=== PATIENT | male | born 1975 | race Caucasian/White ===

== ENCOUNTER 2020-05-08 18:54 | Inpatient (IN) ==
[2020-05-08] MEDS ORDERED: SODIUM CHLORIDE 0.9% 500 ML IV SCH (19:00)
[2020-05-08] MEDS: HYDROmorphone INJ 1 MG/ML SYRINGE IV PRN ×4 (19:04→21:02)
--- NOTE | 2020-05-08 19:11 | XRay Report ---
XR chest 1V portable CLINICAL HISTORY: trauma COMPARISON STUDY: No previous studies for comparison. FINDINGS: Cardiomediastinal silhouette is unremarkable. Small amount of right chest wall gas is noted . There is a suspected small right apical pneumothorax. Probable acute nondisplaced fractures of the posterior lateral right fifth and sixth ribs are noted. There is no left pneumothorax. No airspace op acities are identified. Pulmonary vascularity is normal. IMPRESSION: 1. Small right apical pneumothorax. Small amount of right chest wall gas. 2. Probable acute nondisplaced fractures of the posterolateral right fifth and sixth ribs. ACT 112: Negative or not required by law. Electronically signed by: Perez Pack M.D. 05/08/2020 7:10 PM
[2020-05-08 19:15] LABS: Basophils # (auto) 0.03 K/uL (0-0.2); Basophils % (auto) 0.2 %; Eosinophils # (auto) 0.16 K/uL (0-0.5); Hemoglobin 14.8 g/dL (14.0-18.0); Immature Granulocytes # (auto) 0.03 K/uL (0.00-0.02); Immature Granulocytes % (auto) 0.2 %; Lymphocytes % (auto) 9.3 %; Mean Corpuscular Hgb Conc 33.6 g/dL (32-36); Mean Corpuscular Volume 86.1 fL (80-100); Mean Platelet Volume 9.4 fL (7.4-10.4); Monocytes % (auto) 6.8 %; Neutrophils # (auto) 13.26 K/uL (1.4-6.5); Neutrophils % (auto) 82.5 %; Platelet Count 211 K/uL (130-400); RDW Coefficient of Variation 12.9 % (11.5-14.5); Red Blood Count 5.11 M/uL (4.7-6.1); White Blood Count 16.08 K/uL (4.8-10.8)
[2020-05-08] MEDS ORDERED: IOVERSOL 100ml IV ONE (19:19)
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
[2020-05-08 19:32] LABS: Alanine Aminotransferase 40 U/L (12-78); Albumin Level 4.1 gm/dl (3.4-5.0); Aspartate Aminotransferase 50 U/L (15-37); BUN Creatinine Ratio 23.3 (10-20); Blood Urea Nitrogen 25 mg/dl (7-18); Calcium 9.5 mg/dl (8.5-10.1); Carbon Dioxide 27 mmol/L (21-32); Chloride 111 mmol/L (98-107); Creatinine Clr Calc Pharmacy 95.2 ml/min; Est GFR (African American) 100.3; Est GFR (Non-African American) 86.5; Glucose 85 mg/dl (70-99); Potassium 4.1 mmol/L (3.5-5.1); Sodium 142 mmol/L (136-145)
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
[2020-05-08 19:37] LABS: Alkaline Phosphatase 77 U/L (45-117); Bilirubin,Total 0.4 mg/dl (0.2-1); Globulin 3.9 gm/dl (2.5-4.0); Troponin I < 0.015 ng/ml (0-0.045)
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
[2020-05-08] MEDS ORDERED: ACETAMINOPHEN 325 MG TAB PO PRN (22:50)
[2020-05-08] MEDS: MoRPHine SULFATE 2 MG/ML CARP IV PRN (23:27)
[2020-05-09] MEDS: LIDOCAINE 5% 1 PATCH TD SCH ×2 (00:18→23:46)
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
[2020-05-09] MEDS: MoRPHine SULFATE 2 MG/ML CARP IV PRN ×4 (02:46→19:49)
--- NOTE | 2020-05-09 07:18 | XRay Report ---
XR chest 1V portable CLINICAL HISTORY: Pneumothorax COMPARISON STUDY: Chest radiograph and chest CT May 08, 2020. FINDINGS: Aydfq-ql-fkcanxle right apical pneumothorax has increased in size since prior examination. Right perihilar left basilar opacities have developed. A small amount of gas within the right chest w all is again noted. Right fifth and sixth rib fractures are again noted. Lung volumes are mildly dimi nished. IMPRESSION: 1. Increase in size of a gfmcx-og-vaojvtza right apical pneumothorax. 2. Interval development of right perihilar and left basilar airspace opacity. 3. Small amount of gas within the right chest wall. 4. Redemonstration of right fifth and sixth rib acute fractures. ACT 112: Negative or not required by law. Electronically signed by: Perez Pack M.D. 05/09/2020 7:16 AM
[2020-05-09] MEDS: MULTIVITAMIN TAB PO SCH (07:59)
[2020-05-09] MEDS: VITAMIN B COMPLEX TAB PO SCH (07:59)
[2020-05-09] MEDS: CETIRIZINE HCL 10 MG TABLET PO SCH (07:59)
[2020-05-09] MEDS: METOPROLOL SUCC 50MG EXT REL TAB PO SCH (07:59)
[2020-05-09] MEDS ORDERED: NIACIN 50 MG PO SCH (09:00)
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
[2020-05-09] MEDS: oxyCODONE HCL IR 5 MG TAB (IMMEDIATE RELEASE) PO PRN ×3 (10:35→23:49)
--- NOTE | 2020-05-09 12:18 | Electrocardiogram Report ---
Test Reason : Blood Pressure : / mmHG Vent. Rate : 094 BPM Atrial Rate : 094 BPM P-R Int : 140 ms QRS Dur : 086 ms QT Int : 356 ms P-R-T Axes : 040 000 -14 degrees QTc Int : 445 ms Poor data quality, interpretation may be adversely affected Normal sinus rhythm Poor R wave progression, consider anterior FL vs. lead placement vs. LVH Abnormal ECG No previous ECGs available Confirmed by Christopher Ortiz ([id number]) on 05/09/2020 12:18:37 PM Referred By: REFERRED SELF Confirmed By:Christopher Ortiz
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
--- NOTE | 2020-05-09 14:17 | XRay Report ---
SINGLE VIEW CHEST CLINICAL HISTORY: Follow-up pneumothorax. FINDINGS: An AP, portable, upright chest radiograph is compared to study performed earlier the same d ay 05/09/2020. Correlation is made with chest CT dated 05/08/2020. The examination is degraded by por table technique and patient rotation. The cardiomediastinal silhouette is unremarkable. Left basila r airspace opacities have almost completely resolved and likely represented atelectasis. No large ple ural effusion is identified. A small right apical pneumothorax has decreased in size from today's ear lier examination. Right posterior rib fractures are again noted. IMPRESSION: 1. A small right apical pneumothorax has modestly decreased in size from today's earlier examination. 2. Left basilar opacities seen previously have almost completely resolved and likely represented atel ectasis. ACT 112: Negative or not required by law. Electronically signed by: Yonny Farah M.D. 05/09/2020 2:16 PM
--- NOTE | 2020-05-09 22:34 | Billing Data ---
Date of Service May 09, 2020 Coding Level of Care Code 24649 OBS Care - Level 3
[2020-05-10] MEDS: MoRPHine SULFATE 2 MG/ML CARP IV PRN (07:22)
--- NOTE | 2020-05-10 07:53 | XRay Report ---
XR chest 1V portable HISTORY: pneumothorax f/u COMPARISON: Chest 05/09/2020. FINDINGS: No significant change in the small right apical pneumothorax. Displaced right-sided rib fra ctures are again noted. No pleural effusions. The heart is normal in size. IMPRESSION: No change in the small right pneumothorax and right-sided rib fractures. ACT 112: Negative or not required by law. Electronically signed by: Ger Lewis M.D. 05/10/2020 7:51 AM
[2020-05-10] MEDS: METOPROLOL SUCC 50MG EXT REL TAB PO SCH (08:21)
[2020-05-10] MEDS: CETIRIZINE HCL 10 MG TABLET PO SCH (08:21)
[2020-05-10] MEDS: MULTIVITAMIN TAB PO SCH (08:21)
[2020-05-10] MEDS: VITAMIN B COMPLEX TAB PO SCH (08:21)
[2020-05-10] MEDS ORDERED: DOCUSATE SODIUM 100 MG CAP PO SCH (10:00)
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
[2020-05-10] MEDS: oxyCODONE HCL IR 5 MG TAB (IMMEDIATE RELEASE) PO PRN (12:44)
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
--- NOTE | 2020-05-10 17:01 | Billing Data ---
Date of Service May 10, 2020 Coding Level of Care Code D/C Day Management <30 mins
== END 2020-05-10 13:15 | disposition home or self-care (01) | DRG 200 ==
LOC: ED 18:54 → SUATTDRO 21:35 → 2S 21:35